=== PATIENT | male | born 1935 | race Caucasian/White ===

== ENCOUNTER 2017-08-25 16:02 | Emergency (ER) | payer OTHER ==
[~2017-08-25] VITALS: Ht 165.1 cm; Wt 94.3 kg
[~2017-08-25 16:02] MED LIST: COUMADIN; LASIX; LISINOPRIL
[2017-08-25] MEDS ORDERED: AUGMENTIN875 MG PO (16:22)
[2017-08-25 17:01] VITALS: BP 141/91
== END 2017-08-25 17:03 | disposition home or self-care (01) ==
LOC: EME 16:02
PROC: 3E0234Z Introduction of Serum, Toxoid and Vaccine into Muscle, Percutaneous Approach (ICD-10-PCS; principal; 2017-08-25)
DX: S61.051A Open bite of right thumb without damage to nail, initial encounter (principal); W54.0XXA Bitten by dog, initial encounter; Z23 Encounter for immunization; I10 Essential (primary) hypertension